=== PATIENT | female | born 1955 | race Asian ===

== ENCOUNTER 2021-10-13 08:01 | Outpatient (RCR) | payer OTHER, SELFPAY ==
--- NOTE | 2021-10-13 18:11 | PT.OIE ---
Current Diagnoses Unspecified osteoarthritis, unspecified site (10/13/21) Pain in left elbow (10/13/21) Muscle weakness (generalized) (10/13/21) Visit Care Team Role Provider Type Portia Bennett MD Attending Provider Physician Primary Care Provider Referring Provider Specialty: Family Practice Address: [address] [place] [address], [address], [place], [address] Email: [email or web address] Physical Therapy Initial Evaluation PT-OP-A Visit Information Start: 10/10/21 17:11 Freq: Status: Active Protocol: Document 10/13/21 08:17 LRN (Rec: 10/13/21 10:30 LRN [id number]) Out-Patient Physical Therapy Visit Information Visit Information Visit Type Initial Evaluation Visit Start Time 08:17 Visit Stop Time 09:03 Total Visit Minutes 47 Visit Number 1 Evaluation Information Evaluation Date 10/13/21 Precautions Precautions Records review: Arthritis Asymptomatic bradycardia R shoulder RC surgery Low back herniated disc -2000 Thyroid disorder PT-OP-B Current Condition Start: 10/10/21 17:11 Freq: Status: Active Protocol: Document 10/13/21 08:17 LRN (Rec: 10/13/21 10:30 LRN [id number]) Current Condition History of Current Condition Onset Date 1 yrs ago Current Complaints Bilateral hand pain at thenar eminence and L medial elbow History of Current Condition Insidious onset of bilateral hand pain. Started with L hand pain (R handed) and so bad that couldn't sleep at night. Had PT at [facility] , Mar 2021 for 2 months. Moved to [place] May 30, 2021 , and was told to follow up her therapy for strengthening. Increased her finger ROM and doesn't keep her up at nights . Taught not to pinch and hyperextend. Was given some ex's and uses a ball to massage her hand. She feels she could increase her strength. States she also had pain at medial L elbow joint. Was told she had golfer's elbow. Currently has pain at L elbow when bending and reaching across to her other shoulder, and she states her L medial elbow is swollen. Pt is R handed. 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 Unable to verify test results. 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 Decrease pain when needing the L thumb to anchor and hold objects. PT goal is also for pain management (uses a forearm strap) of R elbow, and to be painfree. 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 Had an ergo assessment at work. Has split computer board and stand up desk. Current Functional Impairments (Reported) Functional Limitations- ADL's Stretches every morning the LB due to back pain. Functional Limitations- Work/School No difficulties with hands anymore with work. Functional Limitations- Recreation/ Outdoor fixing of deck (screws Hobbies , power tools, hammer) work, causing pain from fatigue of hands. Used to be able to lift heavy objects, but is not able to do anymore heavy work. Personal Factors Other Personal Factors That May Effect Arthritis, Asymptomatic Therapy/Recovery bradycardia, works remotely on computer. PT-OP-C Subjective Start: 10/10/21 17:11 Freq: Status: Active Protocol: Document 10/13/21 08:17 LRN (Rec: 10/13/21 10:30 LRN [id number]) Patient Questionnaires Quick Dash- Upper Extremity Quick Dash UE Score 11.36 Quick Dash UE Impairment 1 to 19% Impaired (Score 1-19) OP-PT Pain Assessment Pain Assessment Grid Paper Pain Assessment Grid Completed Yes Location L medial elbow Pain Location Details L medial elbow & wrist flexor tendons at medial epicondyle Intensity 4 Scale Used Numeric (0 - 10) Description Aching Frequency Intermittent Pain Aggravating Factors Activity Other Pain Alleviating Factors Wears forearm band Right hand Pain Location Details Thenar eminence Intensity 4 Scale Used Numeric (0 - 10) Description Aching Frequency Intermittent Pain Aggravating Factors Activity Pain Alleviating Factors Exercise,Massage Left hand Pain Location Details Thenar eminence Intensity 6 Scale Used Numeric (0 - 10) Description Aching Frequency Intermittent Pain Aggravating Factors Activity Pain Alleviating Factors Exercise,Massage PT-OP-H Neuro Start: 03/18/22 17:11 Freq: Status: Active Protocol: Document 10/13/21 08:17 LRN (Rec: 10/13/21 10:30 LRN [id number]) Sensation Evaluation Gross Sensation Gross Sensation WNL PT-OP-K Range of Motion Start: 10/10/21 17:11 Freq: Status: Active Protocol: Document 10/13/21 08:17 LRN (Rec: 10/13/21 10:30 LRN [id number]) Elbow/Forearm Range of Motion Elbow/Forearm Right Active ROM Testing Position Sitting Elbow Flexion (degrees) 140 Left Active Elbow/Forearm ROM WFL No ROM Testing Position Sitting Elbow Flexion (degrees) 120 Wrist Goniometric Range of Motion Wrist Right Wrist ROM WFL No Flexion Active (degrees) 70 Extension Active (degrees) 77 Left Wrist ROM WFL No Flexion Active (degrees) 85 Extension Active (degrees) 70 Thumb Goniometric Range of Motion Thumb Right CMC Flexion Active (degrees) 15 Comments CMC AB 55 deg's Left CMC Flexion Active (degrees) 15 Comments CMC AB 50 deg's PT-OP-M Strength Start: 10/10/21 17:11 Freq: Status: Active Protocol: Document 10/13/21 08:17 LRN (Rec: 10/13/21 10:30 LRN [id number]) Wrist Strength Wrist Manual Muscle Testing Right Comments Generally 5/5 Left Comments Generally 5/5, except resisted wrist flex causes pain at forearm. Finger/Thumb Strength Finger Manual Muscle Testing Left Thumb Flexion (fingers C8) 4 Good Extension (thumb C8) 5 Normal Adduction 3+ Fair+ Abduction (fingers T1) 4+ Good+ Comments Pain at thenar eminence with resisted AD Right Thumb Flexion (fingers C8) 5 Normal Extension (thumb C8) 4 Good Adduction 5 Normal Abduction (fingers T1) 5 Normal Comments Pain at CMC jt with AD. Hand Glass Inserter/Pinch Strength Hand Dominance Hand Dominance Right Hand Strength Right Comments 25, 28, 26 kg (avg is 26 kg) Pinch: 7.5 kg Left Comments 24, 20, 23 kg (avg is 22 kg) Pinch: 9 kg PT-OP-Q Treatments Start: 10/10/21 17:11 Freq: Status: Active Protocol: Document 10/13/21 08:17 LRN (Rec: 10/13/21 10:30 LRN [id number]) Self-Care/Home Management Treatment Education Other Education Discussed results of evaluation, goals, and plan of care (POC). Pt agreeable to goals and POC. Activities Self-Care/Home Management Activities I/S pt to increase use of Cryotherapy to L medial elbow/ forearm and to resume wrist stretches. Pt to use forearm strap to reduce pain with daily use. PT-OP-T Assessment and Plan Start: 10/10/21 17:11 Freq: Status: Active Protocol: Document 10/13/21 08:17 LRN (Rec: 10/13/21 10:30 LRN [id number]) Physical Therapy Assessment Rehab Potential Rehabilitation Potential Good Evaluation Complexity Number of Personal Factors/Comorbidities 3 or More Number of Body Systems Impaired 4 or More Clinical Presentation at Evaluation Evolving Impairments Impairments Activity Tolerance,Edema,Pain, ROM,Strength Goals Three Impairment Decreased L hand strength Impairment Glass Inserter strength: R: 25, 28, 26 kg (avg is 26 kg ) L: 24, 20, 23 kg (avg is 22 kg ) Pinch Glass Inserter: 7.5 kg R, 9 kg L. Norm automobile contract clerk strength for women ages 60-64 is 25 kg R, 20.7 kg L. Short Term Goal (STG) Improve L hand strength with pt able to open jar/bottle tops with her L hand ( stabilizing jar/bottle with R hand) without pain. STG Duration 11/28/21 Brand Representative Goal (LTG) Improve L hand strength with pt able to perform functional activities at prior level of function (use of hammer or power tools, cutting food for meal prep with modified automobile contract clerk, without pain). LTG Duration 01/11/22 Two Impairment L medial elbow pain (Golfers Elbow), rated 4/10, intermittent Short Term Goal (STG) Pt will be educated in self care pain management techniques (pt currently uses a forearm strap). STG Duration 11/07/21 Brand Representative Goal (LTG) PT goal is to be painfree in the L medial elbow. LTG Duration 01/11/22 One Impairment Lacks appropriate self care HEP Short Term Goal (STG) Review and educate pt in self care HEP of hand ROM ex's. STG Duration 10/31/21 Brand Representative Goal (LTG) Pt will be educated in self care HEP of hand endurance strengthening ex's and wrist flexor stretch and strengthening ex's and UE neural ex's. LTG Duration 01/11/22 Assessment Summary Assessment Pt is a 66 year old female who has recently moved to the area and prior was receiving physical therapy from hand specialist at [facility]. Records indicate PT in [place], [place]. Clinical information from the clinic she was receiving therapy from was not available. The pt has pain at the bilateral CMC joints with resistance and reported use with pain at the thenar eminence bilaterally. She demonstrates weakness of the L hand compared to the R hand, but it should be noted that the pt is R handed. She is normal in her automobile contract clerk strength when compared to normative values, but she does experience pain in the thumbs with use. She has soft tissue dysfunction of her L medial elbow at the medial epicondyle and the forearm muscles of the wrist flexors, getting pain with use and stretch. The pt will benefit from skilled physical therapy for pt education in self care and ROM, strengthening and endurance strengthening of the bilateral thumbs/hands and L wrist/forearm and elbow. Physical Therapy Plan Frequency and Duration Frequency of Treatment 2x/Week Plan of Care Start Date 10/13/21 Plan of Care End Date 01/09/22 Therapeutic Interventions Therapeutic Interventions Coordination Training,Home Exercise Program,Joint Mobilizations,Manual Therapy, Patient/Caregiver Education, Self-Care/Home Management,Soft Tissue Mobilization,Taping, Therapeutic Exercises Modalities Cold Pack/Ice Massage,Hot Packs,Iontophoresis,Paraffin Bath,Ultrasound Other Therapeutic Interventions Iontophoresis with 4 mg/mL of Dexamethasone with Sodium Phosphate. Next Visit Focus/Plan Next Note Type Treatment Note Next Visit Plan Request Consent for exchange of information from [facility], due to pt has transferred her care. Discuss with pt scheduling of 2x/week for 4 weeks, then decreasing if appropriate to 1x/week for 4 weeks. Clear cervical spine and UE neural tension. Educate pt in her current HEP if she brings her program in. Educate pt in edema management of L elbow/hands with use of RICE and hot/cold technique. Modalities: Ultrasound to L wrist extensors at medial epicondyle attachment. Exercises: L wrist ECC strengthening and Conc after a few weeks of ECC, if symptom free, L hand conc strengthening of finger extensors and intrinsic muscles (AB). K-tape for relaxation of L thumb and wrist flexors, possible Star tape at medial elbow for edema management. When on HEP decrease to 1x/ week.
--- NOTE | 2021-10-13 18:12 | PT.OPPOC ---
Physical, Occupational & Speech Therapy At [facility] Current Diagnoses Unspecified osteoarthritis, unspecified site (10/13/21) Pain in left elbow (10/13/21) Muscle weakness (generalized) (10/13/21) Visit Care Team Role Provider Type Portia Bennett MD Attending Provider Physician Primary Care Provider Referring Provider Specialty: [facility] Address: [address] [place] [address], [facility] [place], [facility] Email: [email or web address] Plan Of Care PT-OP-T Assessment and Plan Start: 10/10/21 17:11 Freq: Status: Active Protocol: Document 10/13/21 08:17 LRN (Rec: 10/13/21 10:30 LRN [id number]) Physical Therapy Assessment Rehab Potential Rehabilitation Potential Good Evaluation Complexity Number of Personal Factors/Comorbidities 3 or More Number of Body Systems Impaired 4 or More Clinical Presentation at Evaluation Evolving Impairments Impairments Activity Tolerance,Edema,Pain, ROM,Strength Goals Three Impairment Decreased L hand strength Impairment Senior Actuarial Analyst strength: R: 25, 28, 26 kg (avg is 26 kg ) L: 24, 20, 23 kg (avg is 22 kg ) Pinch Senior Actuarial Analyst: 7.5 kg R, 9 kg L. Norm paint formulator strength for women ages 60-64 is 25 kg R, 20.7 kg L. Short Term Goal (STG) Improve L hand strength with pt able to open jar/bottle tops with her L hand ( stabilizing jar/bottle with R hand) without pain. STG Duration 11/28/21 Electric Knife Operator Goal (LTG) Improve L hand strength with pt able to perform functional activities at prior level of function (use of hammer or power tools, cutting food for meal prep with modified paint formulator, without pain). LTG Duration 01/11/22 Two Impairment L medial elbow pain (Golfers Elbow), rated 4/10, intermittent Short Term Goal (STG) Pt will be educated in self care pain management techniques (pt currently uses a forearm strap). STG Duration 11/07/21 [facility] Goal (LTG) PT goal is to be painfree in the L medial elbow. LTG Duration 01/11/22 One Impairment Lacks appropriate self care HEP Short Term Goal (STG) Review and educate pt in self care HEP of hand ROM ex's. STG Duration 10/31/21 [facility] Goal (LTG) Pt will be educated in self care HEP of hand endurance strengthening ex's and wrist flexor stretch and strengthening ex's and UE neural ex's. LTG Duration 01/11/22 Assessment Summary Assessment Pt is a 66 year old female who has recently moved to the area and prior was receiving physical therapy from hand specialist at [facility]. Records indicate PT in [place], [place]. Clinical information from the clinic she was receiving therapy from was not available. The pt has pain at the bilateral CMC joints with resistance and reported use with pain at the thenar eminence bilaterally. She demonstrates weakness of the L hand compared to the R hand, but it should be noted that the pt is R handed. 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 She has soft tissue dysfunction of her L medial elbow at the medial epicondyle and the forearm muscles of the wrist flexors, getting pain with use and stretch. The pt will benefit from skilled physical therapy for pt education in self care and ROM, strengthening and endurance strengthening of the bilateral thumbs/hands and L wrist/forearm and elbow. Physical Therapy Plan Frequency and Duration Frequency of Treatment 2x/Week Plan of Care Start Date 10/13/21 Plan of Care End Date 01/09/22 Therapeutic Interventions Therapeutic Interventions Coordination Training,Home Exercise Program,Joint Mobilizations,Manual Therapy, Patient/Caregiver Education, Self-Care/Home Management,Soft Tissue Mobilization,Taping, Therapeutic Exercises Modalities Cold Pack/Ice Massage,Hot Packs,Iontophoresis,Paraffin Bath,Ultrasound Other Therapeutic Interventions Iontophoresis with 4 mg/mL of Dexamethasone with Sodium Phosphate. Next Visit Focus/Plan Next Note Type Treatment Note Next Visit Plan Request Consent for exchange of information from [facility], due to pt has transferred her care. Discuss with pt scheduling of 2x/week for 4 weeks, then decreasing if appropriate to 1x/week for 4 weeks. Clear cervical spine and UE neural tension. Educate pt in her current HEP if she brings her program in. Educate pt in edema management of L elbow/hands with use of RICE and hot/cold technique. Modalities: Ultrasound to L wrist extensors at medial epicondyle attachment. Exercises: L wrist ECC strengthening and Conc after a few weeks of ECC, if symptom free, L hand conc strengthening of finger extensors and intrinsic muscles (AB). K-tape for relaxation of L thumb and wrist flexors, possible Star tape at medial elbow for edema management. When on HEP decrease to 1x/ week. Plan of Care Dates Plan of Care Start Date 10/13/21 Plan of Care End Date 01/09/22 Electronically Signed by: Quynh Horton, PT 10/13/21 [id number] Please Sign and Return: I have reviewed this Plan of Care and certify that the skilled therapy services above are required to meet the patient?s needs. Physician Signature Date Printed Name and Credentials Clinical Instructor Signature Printed Name and Credentials
--- NOTE | 2021-10-23 17:24 | PT-OP ANOTE ---
Msg left for pt to return call regarding plan of care by next week since she has canceled all her appointments. Clinic phone number left.
--- NOTE | 2021-10-31 18:54 | PT.OPDS ---
Current Diagnoses Unspecified osteoarthritis, unspecified site (10/13/21) Pain in left elbow (10/13/21) Muscle weakness (generalized) (10/13/21) Visit Care Team Role Provider Type Portia Bennett MD Attending Provider Physician Primary Care Provider Referring Provider Specialty: Family Practice Address: [address] [place] [address], [address], [place], [address] Email: [email or web address] Visit Number Visit Number 1 Discharge Summary PT-OP-B Current Condition Start: 10/10/21 17:11 Freq: Status: Active Protocol: Document 10/13/21 08:17 LRN (Rec: 10/13/21 10:30 LRN [id number]) Current Condition History of Current Condition Onset Date 1 yrs ago Current Complaints Bilateral hand pain at thenar eminence and L medial elbow History of Current Condition Insidious onset of bilateral hand pain. Started with L hand pain (R handed) and so bad that couldn't sleep at night. Had PT at [facility] , Mar 2021 for 2 months. Moved to [place] May 30, 2021 , and was told to follow up her therapy for strengthening. Increased her finger ROM and doesn't keep her up at nights . Taught not to pinch and hyperextend. Was given some ex's and uses a ball to massage her hand. She feels she could increase her strength. States she also had pain at medial L elbow joint. Was told she had golfer's elbow. Currently has pain at L elbow when bending and reaching across to her other shoulder, and she states her L medial elbow is swollen. Pt is R handed. 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 Unable to verify test results. Treatment Goals Patient/Caregiver Goals PT goal is to increase her hand strength, to be able to turn bottle top with L hand ( holding bottle with R), dial brusher ( >10-15 kg), and cutting for food prep (gripping with L hand results in hand fatigue and pain). Decrease pain when needing the L thumb to anchor and hold objects. PT goal is also for pain management (uses a forearm strap) of R elbow, and to be painfree. 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 Had an ergo assessment at work. Has split computer board and stand up desk. Current Functional Impairments (Reported) Functional Limitations- ADL's Stretches every morning the LB due to back pain. Functional Limitations- Work/School No difficulties with hands anymore with work. Functional Limitations- Recreation/ Outdoor fixing of deck (screws Hobbies , power tools, hammer) work, causing pain from fatigue of hands. Used to be able to lift heavy objects, but is not able to do anymore heavy work. Personal Factors Other Personal Factors That May Effect Arthritis, Asymptomatic Therapy/Recovery bradycardia, works remotely on computer. PT-OP-C Subjective Start: 10/10/21 17:11 Freq: Status: Active Protocol: Document 10/13/21 08:17 LRN (Rec: 10/13/21 10:30 LRN [id number]) Patient Questionnaires Quick Dash- Upper Extremity Quick Dash UE Score 11.36 Quick Dash UE Impairment 1 to 19% Impaired (Score 1-19) OP-PT Pain Assessment Pain Assessment Grid Paper Pain Assessment Grid Completed Yes Location L medial elbow Pain Location Details L medial elbow & wrist flexor tendons at medial epicondyle Intensity 4 Scale Used Numeric (0 - 10) Description Aching Frequency Intermittent Pain Aggravating Factors Activity Other Pain Alleviating Factors Wears forearm band Right hand Pain Location Details Thenar eminence Intensity 4 Scale Used Numeric (0 - 10) Description Aching Frequency Intermittent Pain Aggravating Factors Activity Pain Alleviating Factors Exercise,Massage Left hand Pain Location Details Thenar eminence Intensity 6 Scale Used Numeric (0 - 10) Description Aching Frequency Intermittent Pain Aggravating Factors Activity Pain Alleviating Factors Exercise,Massage PT-OP-H Neuro Start: 10/10/21 17:11 Freq: Status: Active Protocol: Document 10/13/21 08:17 LRN (Rec: 10/13/21 10:30 LRN [id number]) Sensation Evaluation Gross Sensation Gross Sensation WNL PT-OP-K Range of Motion Start: 10/10/21 17:11 Freq: Status: Active Protocol: Document 10/13/21 08:17 LRN (Rec: 10/13/21 10:30 LRN [id number]) Elbow/Forearm Range of Motion Elbow/Forearm Right Active ROM Testing Position Sitting Elbow Flexion (degrees) 140 Left Active Elbow/Forearm ROM WFL No ROM Testing Position Sitting Elbow Flexion (degrees) 120 Wrist Goniometric Range of Motion Wrist Right Wrist ROM WFL No Flexion Active (degrees) 70 Extension Active (degrees) 77 Left Wrist ROM WFL No Flexion Active (degrees) 85 Extension Active (degrees) 70 Thumb Goniometric Range of Motion Thumb Right CMC Flexion Active (degrees) 15 Comments CMC AB 55 deg's Left CMC Flexion Active (degrees) 15 Comments CMC AB 50 deg's PT-OP-M Strength Start: 10/10/21 17:11 Freq: Status: Active Protocol: Document 10/13/21 08:17 LRN (Rec: 10/13/21 10:30 LR [id number]) Wrist Strength Wrist Manual Muscle Testing Right Comments Generally 5/5 Left Comments Generally 5/5, except resisted wrist flex causes pain at forearm. Finger/Thumb Strength Finger Manual Muscle Testing Left Thumb Flexion (fingers C8) 4 Good Extension (thumb C8) 5 Normal Adduction 3+ Fair+ Abduction (fingers T1) 4+ Good+ Comments Pain at thenar eminence with resisted AD Right Thumb Flexion (fingers C8) 5 Normal Extension (thumb C8) 4 Good Adduction 5 Normal Abduction (fingers T1) 5 Normal Comments Pain at CMC jt with AD. Hand Floor Clerk/Pinch Strength Hand Dominance Hand Dominance Right Hand Strength Right Comments 25, 28, 26 kg (avg is 26 kg) Pinch: 7.5 kg Left Comments 24, 20, 23 kg (avg is 22 kg) Pinch: 9 kg PT-OP-T Assessment and Plan Start: 10/10/21 17:11 Freq: Status: Active Protocol: Document 10/31/21 18:49 LRN (Rec: 10/31/21 18:53 LR [id number]) Physical Therapy Assessment Goals Three Impairment Decreased L hand strength Impairment Floor Clerk strength: R: 25, 28, 26 kg (avg is 26 kg ) L: 24, 20, 23 kg (avg is 22 kg ) Pinch Floor Clerk: 7.5 kg R, 9 kg L. Norm dial brusher strength for women ages 60-64 is 25 kg R, 20.7 kg L. Short Term Goal (STG) Improve L hand strength with pt able to open jar/bottle tops with her L hand ( stabilizing jar/bottle with R hand) without pain. STG Duration 11/28/21 (10/31/21: NOT MET GOALS, pt did not attend therapy) Jail Goal (LTG) Improve L hand strength with pt able to perform functional activities at prior level of function (use of hammer or power tools, cutting food for meal prep with modified dial brusher, without pain). LTG Duration 01/11/22 (10/31/21: NOT MET GOALS, pt did not attend therapy) Two Impairment L medial elbow pain (Golfers Elbow), rated 4/10, intermittent Short Term Goal (STG) Pt will be educated in self care pain management techniques (pt currently uses a forearm strap). STG Duration 11/07/21 (10/31/21: NOT MET GOALS, pt did not attend therapy) Stock Order Lister Goal (LTG) PT goal is to be painfree in the L medial elbow. LTG Duration 01/11/22 (10/31/21: NOT MET GOALS, pt did not attend therapy) One Impairment Lacks appropriate self care HEP Short Term Goal (STG) Review and educate pt in self care HEP of hand ROM ex's. STG Duration 10/31/21 (10/31/21: NOT MET GOALS, pt did not attend therapy) Jail Goal (LTG) Pt will be educated in self care HEP of hand endurance strengthening ex's and wrist flexor stretch and strengthening ex's and UE neural ex's. LTG Duration 01/11/22 (10/31/21: NOT MET GOALS, pt did not attend therapy) Assessment Summary Assessment Pt was seen for his initial evaluation and on 10/22/21 called to cancel all appointments. Attempt was made to reach patient by phone , but pt did not return call to discuss her plan of care; therefore the pt is being discharged due to lack of attendance. Goals were not met. Physical Therapy Plan Discharge Physical Therapy Discharge Reasons No Longer Attending PT Discharge Comments Thank you for your referral.
== END 2021-11-03 13:57 ==
LOC: PHYS 08:01
PROVIDERS: PCP Student in an Organized Health Care Education/Training Program; Referring Provider Student in an Organized Health Care Education/Training Program; Visit Provider Student in an Organized Health Care Education/Training Program
DX: M19.90 Unspecified osteoarthritis, unspecified site (principal); M62.81 Muscle weakness (generalized); M25.522 Pain in left elbow
CPT/HCPCS: 97162

== ENCOUNTER → 2022-06-12 18:15 | Outpatient (ROUT) | payer OTHER, SELFPAY ==
[2022-06-12 18:59] LABS: Influenza A - CEPHEID Flu A NEGATIVE (NEGATIVE); Influenza B - CEPHEID Flu B NEGATIVE (NEGATIVE); Respiratory Syncytial Virus Negative (Negative)
[2022-06-12 19:02] LABS: COVID-19 CEPHEID 4-PLEX PCR Negative (Negative)
== END ==
PROVIDERS: PCP Student in an Organized Health Care Education/Training Program; Visit Provider Registered Nurse
DX: J06.9 Acute upper respiratory infection, unspecified (principal)
CPT/HCPCS: 0241U

== ENCOUNTER → 2023-03-31 14:56 | Outpatient (CLI) | payer OTHER, SELFPAY ==
--- NOTE | 2023-03-31 | DI.MG.S_ITS ---
BILATERAL DIGITAL SCREENING MAMMOGRAM 3D/2D WITH CAD: 03/31/2023 CLINICAL: Routine screening. Comparison is made to exams dated: 09/01/2018 mammogram, 10/23/2016 mammogram, and 07/13/2014 mammogram - Outside facility. There are scattered areas of fibroglandular density in both breasts (category b / 25%-50% glandular tissue). Current study was also evaluated with a Computer Aided Detection (CAD) system. No significant masses, calcifications, or other findings are seen in either breast. There has been no significant interval change. IMPRESSION: NEGATIVE There is no mammographic evidence of malignancy. A 1 year screening mammogram is recommended. Based on the Tyrer Cuzick model (a risk assessment model) the patient's lifetime risk is 7.9% and her 10 year risk is 3.8%. According to the ACR, ACS, and NCCN guidelines, an annual breast MRI exam along with mammogram is recommended if the patient's lifetime risk is 20% or greater. This exam was interpreted at Station ID: [id number]. NOTE: For mammograms, a report in lay terms will be sent to the patient. Approximately 15% of breast malignancies will not be visualized mammographically. In the management of a palpable breast mass, a negative mammogram must not discourage biopsy of a clinically suspicious lesion. Electronically Signed By: Yadira michaels/kelli:04/06/2023 09:31:38 letter sent: Normal Exam ACR BI-RADS Category 1: Negative [id number]
== END ==
PROVIDERS: PCP Registered Nurse; Referring Provider Registered Nurse; Visit Provider Registered Nurse
DX: Z12.31 Encounter for screening mammogram for malignant neoplasm of breast (principal)
CPT/HCPCS: 77063; 77067

== ENCOUNTER → 2024-10-06 08:28 | Outpatient (CLI) | payer OTHER, SELFPAY ==
[2024-10-06 09:43] LABS: Alanine Aminotransferase 24 IU/L (<35); Albumin 4.4 g/dL (3.5-5.0); Albumin Globulin Ratio 1.2 (1.0-2.8); Alkaline Phosphatase 85 U/L (38-126); Aspartate Aminotransferase 30 IU/L (14-36); BUN Creatinine Ratio 18.5 (6-22); Bilirubin Total 0.4 mg/dL (0.2-1.3); Blood Urea Nitrogen 22 mg/dL (7-17); Carbon Dioxide 27 mmol/L (22-32); Chloride 104 mmol/L (98-107); Cholesterol 306 mg/dL (140-199); Estimated Glomerular Filt Rate 50 mL/min (>60); Globulin 3.6 g/dL (1.7-4.1); Glucose 97 mg/dL (80-110); HDL Cholesterol 79 mg/dL (40-60); HEMOLYSIS < 15 (0-50); LDL Cholesterol Calculated 215 mg/dL (<100); Potassium 4.6 mmol/L (3.4-5.1); Sodium 140 mmol/L (137-145); Triglycerides 58 mg/dL (35-150)
[2024-10-06 10:10] LABS: Add Manual Diff / Slide Review NO; Basophils Absolute Auto 100 /uL (0-100); Basophils Percent Auto 2.1 % (0-2); Eosinophils Absolute Auto 300 /uL (0-450); Eosinophils Percent Auto 4.6 % (2-4); Hemoglobin 14.1 g/dL (12.0-16.0); Lymphocytes Absolute Auto 1800 /uL (1100-4500); Lymphocytes Percent Auto 32.9 % (25-40); Mean Corpuscular HGB Conc 33.6 % (30-36); Mean Corpuscular Volume 86.3 fL (80-100); Monocytes Absolute Auto 400 /uL (0-900); Neutrophils Absolute Auto 2900 /uL (1500-7000); Neutrophils Percent Auto 52.4 % (50-75); Platelet Count 365 X10^3/uL (150-400); Red Blood Cell Count 4.87 X10^6/uL (4.0-5.2); Red Cell Distribution Width 13.8 % (11.6-14.8); White Blood Cell Count 5.5 X10^3/uL (4.5-11.0)
== END ==
PROVIDERS: PCP Family Medicine; Referring Provider Family Medicine; Visit Provider Family Medicine
DX: E66.3 Overweight (principal); E03.9 Hypothyroidism, unspecified; Z13.220 Encounter for screening for lipoid disorders; Z13.1 Encounter for screening for diabetes mellitus
CPT/HCPCS: 36415; 80053; 80061; 83036; 84443; 85025